=== PATIENT | female | born 1960 | race Caucasian/White ===

== ENCOUNTER 2018-04-12 08:06 | Day surgery (SDC) | payer OTHER ==
[2018-04-03 11:49] VITALS: BMI 25.2
[2018-04-12] MEDS ORDERED: PROPOFOL 20 ML ONE ×2 (09:13)
[2018-04-12 11:01] VITALS: TEMP 97.5
[2018-04-12 11:04] VITALS: BP 126/72; PULSE 76
--- NOTE | 2018-04-17 16:07 | PATH ---
Surgical Pathology Report Patient Name: ANDRE ODONNELL [facility]. Rec. #: [id number] /Age/Gender: 1960 (Age: 58) / F Account: [id number] Location: [facility] Taken: 04/12/2018 Received: 04/12/2018 Reported: 04/17/2018 Physicians: Bora Wheat M.D. Specimen(s) Received A: BX DUODENUM B: BX ANTRUM Clinical History GERD, rule out colon cancer Postoperative diagnosis: Normal colon, gastritis Final Diagnosis A. DUODENUM, BIOPSY: DUODENAL MUCOSA WITH NO PATHOLOGIC FINDINGS. B. ANTRUM, BIOPSY: MILD CHRONIC GASTRITIS. IMMUNOSTAIN IS NEGATIVE FOR H PYLORI ORGANISMS. Electronically Signed Shannan Ochoa M.D. Gross Description A. Received in formalin, labeled "duodenum" are 4 felipe, irregular portions of soft tissue averaging 0.2 cm. in greatest dimension. The specimens are submitted in toto in one cassette. B. Received in formalin, labeled "antrum" are 2 felipe, irregular portions of soft tissue averaging 0.3 cm. in greatest dimension. The specimens are submitted in toto in one cassette. 04/13/2018 saudi04/13/2018
== END 2018-04-12 10:20 | disposition home or self-care (01) ==
LOC: FASU-ENDO 08:06
PROVIDERS: ATTEND Internal Medicine Gastroenterology
PROC: 0DB78ZX Excision of Stomach, Pylorus, Via Natural or Artificial Opening Endoscopic, Diagnostic (ICD-10-PCS; 2018-04-12)
PROC: 0DJD8ZZ Inspection of Lower Intestinal Tract, Via Natural or Artificial Opening Endoscopic (ICD-10-PCS; 2018-04-12)
PROC: 0DB98ZX Excision of Duodenum, Via Natural or Artificial Opening Endoscopic, Diagnostic (ICD-10-PCS; principal; 2018-04-12 09:06)
DX: Z12.11 Encounter for screening for malignant neoplasm of colon (principal); K29.50 Unspecified chronic gastritis without bleeding; Z83.71 Family history of colonic polyps; K21.9 Gastro-esophageal reflux disease without esophagitis; I10 Essential (primary) hypertension; M12.9 Arthropathy, unspecified
CPT/HCPCS: 43239; G0105; 88305-TC; 88342-TC

== ENCOUNTER 2020-09-22 16:56 | Observation (INO) | payer OTHER ==
[2020-09-22] MEDS ORDERED: LACTATED RINGERS SOLUTION 1000 ML INFUS.BAG IV ONE (17:44)
[2020-09-22 17:47] LABS: BASO % 4.6 % (0-2.0); EOS % 0.8 % (0-4.5); HEMATOCRIT 43.2 % (32.4-45.2); HEMOGLOBIN 14.7 GM/dl (10.7-15.3); LYMPH % 17.6 % (8-40); MCH 31.4 pg (25.7-33.7); MCHC 34.1 g/dl (32.0-36.0); MEAN CELL VOLUME 92.2 fl (80-96); MEAN PLT VOLUME 9.6 fl (7.5-11.1); MONO % 7.1 % (3.8-10.2); NEUT % 69.9 % (42.8-82.8); PLATELET COUNT 353 K/MM3 (134-434); RBC 4.69 M/mm3 (3.60-5.2); RDW 11.9 % (11.6-15.6); WHITE BLOOD COUNT 8.2 K/mm3 (4.0-10.8)
[2020-09-22 18:03] LABS: ALBUMIN 4.3 g/dl (3.4-5.0); BILIRUBIN,TOTAL 0.7 mg/dl (0.2-1); CALCIUM 9.4 mg/dl (8.5-10); CREATININE 0.9 mg/dl (0.55-1.3)
[2020-09-22 18:05] LABS: INR 1.12 (0.82-1.09); PROTHROMBIN TIME (PATIENT) 12.4 SEC (10.2-13.0)
[2020-09-22] MEDS ORDERED: ZOLPIDEM TARTRATE 5 MG TABLET PO ONE (22:48)
[2020-09-23 01:08] VITALS: BMI 27.6
[2020-09-23 08:04] LABS: BASO % 0.3 % (0-2.0); EOS % 1.3 % (0-4.5); HEMOGLOBIN 14.4 GM/dl (10.7-15.3); LYMPH % 20.6 % (8-40); MCH 32.2 pg (25.7-33.7); MEAN PLT VOLUME 9.7 fl (7.5-11.1); MONO % 10.9 % (3.8-10.2); NEUT % 66.9 % (42.8-82.8); PLATELET COUNT 293 K/MM3 (134-434); RBC 4.46 M/mm3 (3.60-5.2); RDW 12.1 % (11.6-15.6); WHITE BLOOD COUNT 6.5 K/mm3 (4.0-10.8)
[2020-09-23 08:31] LABS: ALBUMIN 4.1 g/dl (3.4-5.0); BILIRUBIN,TOTAL 1.1 mg/dl (0.2-1); CALCIUM 9.6 mg/dl (8.5-10); CREATININE 0.8 mg/dl (0.55-1.3); MAGNESIUM 1.9 mg/dL (1.8-2.4); TOT PROT 6.7 g/dl (6.4-8.2)
[2020-09-23] MEDS ORDERED: FAMOTIDINE 20 MG TABLET PO SCH (10:00)
[2020-09-23] MEDS ORDERED: SULFAMETHOXAZOLE/TRIMETHOPRIM 800MG/160MG D.S. TABLET PO SCH (10:00)
[2020-09-23] MEDS ORDERED: ATENOLOL 25 MG TABLET (FP) PO SCH (14:00)
[2020-09-23 14:02] VITALS: BP 133/78; PULSE 85; TEMP 98.7
== END 2020-09-23 15:02 | disposition home or self-care (01) ==
LOC: FER 16:56 → FM/S 22:25 → UNDOADMOB 09-23 00:15
PROVIDERS: ADMIT Internal Medicine; ATTEND Nurse Practitioner Acute Care
PROC: 3E0337Z Introduction of Electrolytic and Water Balance Substance into Peripheral Vein, Percutaneous Approach (ICD-10-PCS; principal; 2020-09-22)
DX: R00.2 Palpitations (principal); I10 Essential (primary) hypertension; F41.9 Anxiety disorder, unspecified; E78.5 Hyperlipidemia, unspecified; K21.9 Gastro-esophageal reflux disease without esophagitis; G93.3 Postviral and related fatigue syndromes; R30.0 Dysuria
CPT/HCPCS: 36415; 71046-TC-FY; 80053; 80061; 81003; 81015; 83735; 84443; 84484; 85025; 85610; 85730; 87086; 93005; 99285-25; C9803; G0378; U0003; U0005

== ENCOUNTER 2024-03-18 07:51 | Day surgery (SDC) | payer OTHER, MEDICARE ==
[2024-03-13 16:16] VITALS: BMI 26.9
[2024-03-18 08:07] VITALS: RESP 18
[2024-03-18 10:08] VITALS: BP 100/60; TEMP 97.2
[2024-03-18 10:11] VITALS: PULSE 71
== END 2024-03-18 09:45 | disposition home or self-care (01) ==
LOC: FASU-ENDO 07:51
PROVIDERS: ATTEND Internal Medicine Gastroenterology
PROC: 0DJD8ZZ Inspection of Lower Intestinal Tract, Via Natural or Artificial Opening Endoscopic (ICD-10-PCS; principal; 2024-03-18 08:57)
DX: Z12.11 Encounter for screening for malignant neoplasm of colon (principal); Z83.719 Family history of colon polyps, unspecified